=== PATIENT | female | born 1990 | race Caucasian/White ===

== ENCOUNTER 2019-08-07 20:00 | Emergency (ER) | payer OTHER ==
[2019-08-07 20:17] VITALS: BP 117/85; PULSE 80; TEMP 98.7; BMI 20.2
[2019-08-07 20:41] LABS: BASO % 0.4 % (0-2.0); EOS % 1.4 % (0-4.5); HEMATOCRIT 40.7 % (32.4-45.2); HEMOGLOBIN 13.9 GM/dl (10.7-15.3); LYMPH % 28.2 % (8-40); MCH 32.5 pg (25.7-33.7); MCHC 34.2 g/dl (32.0-36.0); MEAN CELL VOLUME 94.9 fl (80-96); MEAN PLT VOLUME 8.7 fl (7.5-11.1); MONO % 6.8 % (3.8-10.2); NEUT % 63.2 % (42.8-82.8); PLATELET COUNT 236 K/MM3 (134-434); RBC 4.28 M/mm3 (3.60-5.2); RDW 11.8 % (11.6-15.6); WHITE BLOOD COUNT 5.8 K/mm3 (4.0-10.8)
[2019-08-07 20:50] LABS: ALBUMIN 4.4 g/dl (3.4-5.0); BILIRUBIN,TOTAL 0.8 mg/dl (0.2-1); CREATININE 0.6 mg/dl (0.55-1.3); TOT PROT 7.6 g/dl (6.4-8.2)
[2019-08-07 21:17] LABS: POTASSIUM 4.2 mmol/L (3.5-5.1)
--- NOTE | 2019-08-08 03:10 | PDOC ---
Documentation entered by Feliciano Vidal SCRIBE, acting as scribe for Dixie Martinez MD. Dixie Martinez MD: This documentation has been prepared by the Marcy mahoney Nirvannie, SCRIBE, under my direction and personally reviewed by me in its entirety. I confirm that the documentation accurately reflects all work, treatment, procedures, and medical decision making performed by me. History of Present Illness - General Chief Complaint: Pain, Acute Stated Complaint: ABD PAIN Time Seen by Provider: 08/07/19 20:03 History Source: Patient Exam Limitations: No Limitations - History of Present Illness Initial Comments: 08/07/19 20:55 The patient is a 28 year old female, with a significant past medical history of IBS (last flare this morning) and anxiety, who presents to the emergency department with, 1.5 days of intermittent diffuse abdominal discomfort worsened in the right lower quadrant with associated nausea. As per patient, he symptoms onset shortly after exercising yesterday while in [place] and was alleviated with rest and Pepto Bismol. She notes upon waking up this morning her symptoms returned with an associated flare of her IBS and a pressure-like sensation to the bilateral lower back. She endorses taking a bus to [place] and going to urgent care at which time she was advised to get a CT scan secondary to pain in her right lower quadrant, prompting her arrival to the ED. Patient notes her anxiety is significantly worsened in relation to medical conditions. She denies her pain to worsen with movement or deep inspiration. She denies recent fevers, chills, headache or dizziness. She denies recent vomit or diarrhea. She denies recent dysuria, frequency, urgency or hematuria. She denies recent chest pain or shortness of breath. Allergies: NKDA Past History - Past Medical History Allergies/Adverse Reactions: Allergies Allergy/AdvReac Type Severity Reaction Status Date / Time No Known Allergies Allergy Unverified 08/07/19 20:02 Home Medications: Ambulatory Orders Norgestimate-Ethinyl Estradiol [Ortho Tri-Cyclen 28 Tablet] 1 each PO DAILY 09/15 Ondansetron [Zofran *Odt*] 4 mg SL BID PRN #10 od.tablet 08/07/19 COPD: No GI Disorders: Yes (IBS) Psychiatric Problems: Yes (ANXIETY) - Immunization History Immunization Up to Date: Yes - Psycho Social/Smoking Cessation Hx Smoking History: Never smoked Review of Systems - Review of Systems Able to Perform ROS?: Yes Comments:: 08/07/19 20:55 CONSTITUTIONAL: Absent: fever, chills, diaphoresis, generalized weakness, malaise, loss of appetite HEENT: Absent: rhinorrhea, nasal congestion, throat pain, throat swelling, difficulty swallowing, mouth swelling, ear pain, eye pain, visual Changes CARDIOVASCULAR: Absent: chest pain, syncope, palpitations, irregular heart rate, lightheadedness , peripheral edema RESPIRATORY: Absent: cough, shortness of breath, dyspnea with exertion, orthopnea, wheezing, stridor, hemoptysis GASTROINTESTINAL: Present: abdominal pain, nausea. Absent: abdominal distension, nausea, vomiting, diarrhea, melena, hematochezia GENITOURINARY: Absent: dysuria, frequency, urgency, hesitancy, hematuria, genital pain MUSCULOSKELETAL: Absent: myalgia, arthralgia, joint swelling SKIN: Absent: rash, itching, pallor HEMATOLOGIC/IMMUNOLOGIC: Absent: easy bleeding, easy bruising, lymphadenopathy, frequent infections ENDOCRINE: Absent: unexplained weight gain, unexplained weight loss, heat intolerance, cold intolerance NEUROLOGIC: Absent: headache, focal weakness or paresthesias, dizziness, unsteady gait, seizure, mental status changes, bladder or bowel incontinence PSYCHIATRIC: Absent: anxiety, depression, suicidal or homicidal ideation, hallucinations. All Other Systems: Reviewed and Negative *Physical Exam - Vital Signs Last Vital Signs Temp Pulse Resp BP Pulse Ox 98.7 F 80 16 117/85 100 08/07/19 20:04 08/07/19 20:04 08/07/19 20:04 08/07/19 20:04 08/07/19 20:04 - Physical Exam Comments: 08/07/19 21:46 GENERAL: The patient is awake, alert, and fully oriented, in no acute distress. HEAD: Normal with no signs of trauma. EYES: Pupils equal, round and reactive to light, extraocular movements intact, sclera anicteric, conjunctiva clear with no pallor. ENT: Ears normal, nares patent, oropharynx clear without exudates. Moist mucous membranes. NECK: Normal range of motion, supple without lymphadenopathy, JVD, or masses. LUNGS: Breath sounds equal, clear to auscultation bilaterally. No wheeze/ crackles. HEART: Regular rate and rhythm, normal S1 and S2 without murmur or rub. ABDOMEN: +Mild tenderness to the right lower quadrant. Soft/nondistended. BS wnl. No guarding or rebound. No palpable masses. No hepatosplenomegaly. EXTREMITIES: Normal range of motion, no edema. No clubbing or cyanosis. No cords, erythema, or tenderness. NEUROLOGICAL: Cranial nerves II through XII grossly intact. Normal speech PSYCH: Normal mood, normal affect. SKIN: Warm, Dry, normal turgor, no rashes or lesions noted. ED Treatment Course - LABORATORY CBC & Chemistry Diagram: 08/07/19 20:25 08/07/19 20:25 - ADDITIONAL ORDERS Additional order review: Laboratory Results 08/07/19 08/07/19 20:15 20:15 Urine Color Yellow Urine Appearance Clear Urine pH 7.5 Urine Protein Negative Urine Glucose (UA) Negative Urine Ketones Trace Urine Blood Negative Urine Nitrite Negative Urine Bilirubin Negative Urine Urobilinogen 0.2 Ur Leukocyte Esterase Negative Urine HCG, Qual Negative 08/07/19 20:25 RBC 4.28 MCV 94.9 MCHC 34.2 RDW 11.8 MPV 8.7 Neutrophils % 63.2 Lymphocytes % 28.2 Monocytes % 6.8 Eosinophils % 1.4 Basophils % 0.4 - RADIOLOGY Radiology Studies Ordered: Category Date Time Status ABDOMEN & PELVIS CT WITH CONTR [CT] Stat CT Scan 08/07/19 21:17 Completed Medical Decision Making - Medical Decision Making As noted above, this 28-year-old woman was referred here from urgent care with a history of abdominal pain. Patient reports 1 day history of progressive discomfort, especially in the right lower quadrant. She also has nausea (no vomiting) associated with this pain. Exam as noted above. Laboratory evaluation is essentially normal. Abdominal/pelvic CT with oral and IV contrast performed: Other than a 1.2 cm right adnexal cyst, no pathology seen. Appendix is normal without evidence of periappendiceal inflammation or free fluid. There is a fair amount of colonic fecal retention. Results discussed with the patient and her family. Patient should maintain a light diet in case she has a mild gastroenteritis causing her nausea and abdominal pain. Patient asked about stool softeners; she can use Colace OTC. She also asked about using dietary cathartics such as prunes if constipation is persistent. She should return to the ER if she has persistent severe pain or develops vomiting/fever Discharge - Discharge Information Problems reviewed: Yes Clinical Impression/Diagnosis: Abdominal pain Qualifiers: Abdominal location: right lower quadrant Qualified Code(s): R10.31 - Right lower quadrant pain Condition: Stable Disposition: HOME - Additional Discharge Information Prescriptions: Ondansetron [Zofran *Odt*] 4 mg SL BID PRN #10 od.tablet PRN Reason: Nausea - Follow up/Referral - Patient Discharge Instructions Patient Printed Discharge Instructions: DI for Abdominal Pain-Adult Additional Instructions: Light diet; advance diet as tolerated Zofran ODT 4 mg up to twice a day as needed for nausea Consider stool softener or food based cathartics (eg prunes) as needed for constipation Return to ER if you have recurrent severe pain/persistent vomiting/fever Follow-up with your doctor within the next 5 to 7 days - Post Discharge Activity
== END 2019-08-07 23:20 | disposition home or self-care (01) ==
LOC: FER 20:00
DX: R10.31 Right lower quadrant pain (principal); K58.9 Irritable bowel syndrome, unspecified; F41.9 Anxiety disorder, unspecified
CPT/HCPCS: 36415; 74177-TC; 80053; 81003; 84703; 85025; 99283-25